=== PATIENT | female | born 2000 | race Caucasian/White ===

== ENCOUNTER 2019-03-11 11:59 | Emergency (ER) | payer OTHER ==
[2019-03-11 16:30] LABS: Urine Appearance Cloudy; Urine Bacteria Absent (Absent); Urine Bilirubin Negative (Negative); Urine Blood 1+ (Negative); Urine Color Amber; Urine Glucose Negative (Negative); Urine Ketones Trace (Negative); Urine Nitrite Negative (Negative); Urine Protein 1+(30 mg/dL) (Negative); Urine Red Blood Cell 3+(>10/hpf) (Absent); Urine Specific Gravity 1.031 (1.010-1.030); Urine Squamous Epithelial Cell Present (Absent); Urine Urobilinogen Negative (Negative); Urine White Blood Cell 3+(>20/hpf) (Absent)
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
[2019-03-11 17:54] VITALS: BP 129/74
[2019-03-12 13:36] LABS: Neisseria gonorrhoeae (GC) RNA Negative (Negative)
[2019-03-13 12:55] LABS: Trichomonas vaginalis Result Negative (Negative)
[2019-03-13 18:23] LABS: HSV 1 PCR Negative (Negative); Herpes Source VAGINAL
== END 2019-03-11 17:53 | disposition home or self-care (01) ==
LOC: ED 11:59
DX: N39.0 Urinary tract infection, site not specified (principal); B00.9 Herpesviral infection, unspecified; N76.0 Acute vaginitis; Z88.8 Allergy status to other drugs, medicaments and biological substances
CPT/HCPCS: 81003; 81015; 87077; 87086; 87186; 87480; 87491; 87510; 87529; 87591; 87661; 99282